=== PATIENT | male | born 1990 | race Caucasian/White ===

== ENCOUNTER 2022-07-03 13:00 | Emergency (ER) | payer OTHER | END 2022-07-03 15:16 | disposition home or self-care (01) | LOC: JD.ED 13:00 | DX: Z77.098 Contact with and (suspected) exposure to other hazardous, chiefly nonmedicinal, chemicals (principal) | CPT/HCPCS: 71046; 71046-26; 99283 ==

== ENCOUNTER 2022-08-10 10:44 | Emergency (ER) | payer OTHER | END 2022-08-10 13:30 | disposition home or self-care (01) | LOC: JD.ED 10:44 | DX: I11.9 Hypertensive heart disease without heart failure (principal); E11.9 Type 2 diabetes mellitus without complications; Z90.49 Acquired absence of other specified parts of digestive tract | CPT/HCPCS: 36415; 71046; 71046-26; 80053; 84443; 84484; 85025; 85379; 93005; 99285 ==